=== PATIENT | male | born 1980 | race Caucasian/White ===

== ENCOUNTER 2017-08-29 09:58 | Outpatient (CLI) | payer BC | END 2017-08-29 09:59 | disposition home or self-care (01) | LOC: SCSMRI 09:58 | PROVIDERS: ATTEND Family Medicine | DX: M47.22 Other spondylosis with radiculopathy, cervical region (principal) ==

== ENCOUNTER 2017-10-27 11:51 | Day surgery (SDC) | payer BC ==
[2017-10-26 12:16] VITALS: BMI 30.7
[2017-10-27] MEDS ORDERED: Midazolam HCl 2 mg/2 ml Vial ONE ×2 (13:22→13:46)
--- NOTE | 2017-10-27 13:31 | RAD ---
CERVICAL SPINE 3 VIEWS: Date: 10/27/17 HISTORY: 37-year-old male with neck pain. COMPARISON: 08/15/17. FINDINGS: Portions of the left-sided C1 are obscured on the AP open-mouth view. No evidence for acute fracture or dislocation. Very mild disc osteophytosis and facet arthrosis. No significant prevertebral soft ti ssue swelling. IMPRESSION: Mild cervical spondylosis. Stable from prior study. No new process. POS: CURRY
--- NOTE | 2017-10-27 15:13 | MRI ---
MRI CERVICAL SPINE NONCONTRAST: Date: 10/27/17 HISTORY: 37-year-old male with ICD-10: M54.12 cervical radiculopathy. COMPARISON: None. FINDINGS: There is no Chiari I malformation. Cervical spinal cord is normal in size and signal. Vertebral body heights are maintained. Alignment is normal. Bone marrow signal is normal. No high grade degenerative facet changes at any level. No high grade disc space narrowing at any level. At C5-6, there is a central small disc herniation or disc-osteophyte complex which mildly indents the ventral surface of the spinal cord, causing moderate central spinal canal stenosis. No neural forami nal stenosis at this level. At C6-7, there is a right paracentral and lateral small focal disc herniation which slightly indents the right ventral surface of the spinal cord, causing moderate central spinal canal stenosis. There i s no neural foraminal stenosis at this level. All of the rest of the levels are normal. Perivertebral spaces demonstrate no major abnormality. Inci dentally, there is a prominent 1 cm left suboccipital lymph node. IMPRESSION: 1. Small disc herniations at C5-6 and C6-7 indenting the spinal cord. 2. The rest of the levels are normal. POS: OFF
== END 2017-10-27 15:02 | disposition home or self-care (01) ==
LOC: SDC/OP 11:51
PROVIDERS: ATTEND Physician Assistant Surgical
DX: M54.12 Radiculopathy, cervical region (principal)
CPT/HCPCS: 72040; 72141; J2250